=== PATIENT | female | born 1995 | race Caucasian/White ===

== ENCOUNTER 2018-08-06 22:33 | Emergency (ER) | payer BC, OTHER ==
[~2018-08-06] VITALS: Ht 152.4 cm; Wt 68.9 kg
[2018-08-06 23:00] VITALS: Ht 152.4 cm; Wt 68.9 kg
[2018-08-06] MEDS ORDERED: ONDANSETRON 4 MG INJ IV STA (23:27)
[2018-08-06] MEDS ORDERED: EPINEPHrine 1 MG INJ SC STA (23:27)
[2018-08-06] MEDS ORDERED: SOD CHLORIDE 0.9% 500 ML IV ONE (23:30)
[2018-08-06] MEDS ORDERED: DIPHENHYDRAMINE 50 MG INJ IV ONE (23:30)
[2018-08-06] MEDS ORDERED: FAMOTIDINE 20 MG INJ IV ONE (23:30)
[2018-08-06] MEDS ORDERED: METHYLPREDNISOLONE 125 MG INJ IV ONE (23:30)
--- NOTE | 2018-08-06 23:38 | ERD ---
ER Documentation Chief Complaint Chief Complaint WORSENING FACIAL AND LIP SWELLIG SINCE 7AM HPI This is a 23-year-old female presents emergency department with complaints of facial and lip swelling since 8 AM today. Stated that she woke up with puffy eyes, facial and lip swelling. Stated that she took Benadryl 50 mg p.o. at around 11 AM. Stated that the swelling is increased. Stated that this happened about a month ago and that her primary care physician informed her to take Benadryl. Stated that the Benadryl took a while to take effect. LMP: Stated that she is on it. . Denies headache, head injury, loss of consciousness, dizziness, neck pain, neck stiffness, throat pain, difficulty swallowing, difficulty breathing lying flat, shoulder pain, chest pain, back pain, abdominal pain, nausea, vomiting, cons tipation, diarrhea, urinary symptoms, or possibility being , loss of bowel and bladder control, trauma, injury, falls, difficulty walking due to pain, numbness or tingling sensation, calf pain, recent travel, recent major surgery in the last 3 weeks, calf pain, recent long travel, recent exposure to any illness, recent antibiotic use in the last 3 months, fever, chills, seizures. Past medical history: Denies. Denies family history of heart disease. Surgical history: Social: Denies smoking, use of alcoholic beverages, use of illegal drugs. ROS All systems reviewed and are negative except as per history of present illness. Medications Home Meds Active Scripts Ondansetron Hcl* (Zofran*) 4 Mg Tablet, 4 MG PO Q8H PRN for NAUSEA AND/OR VOMITING, #30 TAB Prov:CHOLO ARRIOLA 08/07/18 Amoxicillin/Potassium Clav (Amox-Clav 875-125 mg Tablet) 875-125 mg Tab, 1 TAB PO BID for 7 Days, #14 TAB Prov:CHOLO ARRIOLA 08/07/18 Famotidine* (Pepcid*) 20 Mg Tablet, 40 MG PO DAILY for 30 Days, TAB Prov:CHOLO ARRIOLA 08/07/18 Prednisone* (Prednisone*) 20 Mg Tab, 40 MG PO DAILY for 4 Days, TAB Prov:CHOLO ARRIOLA 08/07/18 Diphenhydramine Hcl* (Benadryl*) 25 Mg Cap, 25 MG PO Q6 PRN for ITCHING/RASH, #30 TAB Prov:CHOLO ARRIOLA 08/07/18 Loratadine* (Loratadine*) 10 Mg Tablet, 10 MG PO DAILY, #30 TAB Prov:CHOLO ARRIOLA 08/07/18 Epinephrine (Epipen 2-Shar) 0.3 Mg/0.3 Ml Pen.injctr, 1 EA INJ ONCE PRN for ALLERGIC REACTION, #1 EA Prov:CHOLO ARRIOLA 08/07/18 Allergies Allergies: Coded Allergies: No Known Allergy (Unverified , 08/06/18) Physical Exam Vitals Physical Exam Const: No acute distress Head: Atraumatic Eyes: Normal Conjunctiva. Bilateral lower eyelid has swelling without discoloration. No conjunctival injection bilaterally. No visual field loss. ENT: Normal External Ears, Nose and Mouth. Bilateral ears: TMs not erythematous. No bleeding with no discharge. No hearing loss with no mastoid tenderness. No vesicular lesions. Nose: Midline. Lips/throat: Has lip swelling. Able to control tongue movement. No drooling. Uvula is midline nondisplaced tonsils are +1 bilaterally without redness without exudates. Tolerating secretions. Patent airway. No signs of tooth avulsions. No signs of airway obstruction at this time. Speaks full and clear sentences. Neck: Full range of motion. No meningismus. Resp: Clear to auscultation bilaterally Cardio: Regular rate and rhythm, no murmurs Abd: Soft, non tender, non distended. Normal bowel sounds Skin: No petechiae or rashes. Has or discolored rash to face. Philtrum and nasolabial sulcus has a lesions that is described as micro honey-colored crusts.. Back: No midline or flank tenderness Ext: No cyanosis, or edema Neur: Awake and alert. No neurological deficits. Psych: Normal Mood and Affect Results 24 hrs Current Medications Medications Dose Sig/Milana Start Time Status Last (Trade) Ordered Route PRN Stop Time Admin Dose Reason Admin 125 mg ONCE ONCE 08/06/18 DC 08/06/18 Methylprednis IV 23:30 23:43 olone Sodium 08/06/18 23:31 Succinate (Solu-Medrol) 25 mg ONCE ONCE 08/06/18 DC 08/06/18 Diphenhydrami IV 23:30 23:43 ne HCl 08/06/18 23:31 (Benadryl) Famotidine 40 mg ONCE ONCE 08/06/18 DC 08/06/18 (Pepcid Iv) IV 23:30 23:43 08/06/18 23:31 Ondansetron 4 mg ONCE STAT 08/06/18 DC 08/06/18 HCl (Zofran IV 23:27 23:43 Inj) 08/06/18 23:29 Epinephrine 0.3 mg ONCE STAT 08/06/18 DC 08/06/18 SC 23:27 23:44 (EPINEPHrine) 08/06/18 23:29 Sodium 500 ml @ Q1H ONCE 08/06/18 DC 08/06/18 Chloride 500 mls/hr IV 23:30 23:43 08/07/18 00:29 Procedures/MDM Diagnostic tests: Clinical exam. Treatment: Saline lock. Normal saline IV 500 cc bolus. Solu-Medrol IV. Benadryl IV. Pepcid IV. Epinephrine subcu. Re-evaluation: Facial swelling/lip swelling has decreased tremendously. No tongue swelling. Able to control tongue movement. No signs of airway obstruction. Speaks full and clear sentences. No accessory muscle use in breathing. Lung sounds are clear to auscultation. Differential diagnosis I have low suspicion for anaphylactic shock, airway obstruction, peritonsillar abscess, severe angioedema, Lopez-Sai syndrome Final diagnosis: Angioedema. Impetigo. Prescription: Augmentin. Prednisone. Claritin. EpiPen. Benadryl. Follow-up with PCP in the next 24-48 hours. PCP to do an allergy test for environmental and food. PCP to refer patient to survival specialist and/or health information tech. Come back here in the emergency department for any new symptoms or any worsening symptoms. All questions and concerns were answered. Patient and family members verbalized understanding and agreed with plan of care. Hemodynamically stable on discharge. Departure Diagnosis: Primary Impression: Angioedema Additional Impression: Impetigo Condition: Stable Additional Instructions: Follow-up with PCP in the next 24-48 hours. PCP to do an allergy test for environmental and food. PCP to refer patient to survival specialist and/or health information tech. Come back here in the emergency department for any new symptoms or any worsening symptoms. CHOLO ARRIOLA Aug 06, 2018 23:38
[2018-08-07] MEDS ORDERED: EPIN0.3P4 INJ (01:45)
[2018-08-07] MEDS ORDERED: BEN25 PO (01:56)
[2018-08-07] MEDS ORDERED: LORA10TA3 PO (01:56)
[2018-08-07] MEDS ORDERED: PRED20TA PO (01:56)
[2018-08-07] MEDS ORDERED: FAMO-96 PO (01:57)
[2018-08-07] MEDS ORDERED: AMOX1TAB10 PO (01:58)
[2018-08-07] MEDS ORDERED: ONDA4TAB8 PO (04:16)
[2018-08-07 04:49] VITALS: BP 110/69; PULSE 95; RESP 16
== END 2018-08-07 05:03 | disposition home or self-care (01) ==
LOC: FTE 22:33
DX: T78.3XXA Angioneurotic edema, initial encounter (principal); L01.00 Impetigo, unspecified
CPT/HCPCS: J0171; J1200; J2405; J2930; J7040; 96372; 96374; 96375